=== PATIENT | female | born 1960 | race Caucasian/White ===

== ENCOUNTER 2019-03-06 14:48 | Emergency (ER) | payer OTHER ==
[~2019-03-06] VITALS: Ht 160 cm; Wt 42.6 kg
[2019-03-06] MEDS ORDERED: LISINOPRIL20 MG ORAL (14:53)
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
[2019-03-06 14:56] VITALS: BP 141/92
[2019-03-06] MEDS ORDERED: Isovue-300 100ml vial INJ PRN (15:00)
[2019-03-06] MEDS ORDERED: Morphine Sulfate 2mg/ml Inj(IV/IM USE ONLY) IVP ONE ×2 (15:00→16:45)
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
--- NOTE | 2019-03-06 15:13 | NUR ---
ED Nurse Note: XRAY AT BEDSIDE.
[2019-03-06 15:24] LABS: BASOPHILS % (AUTO) 1.6 % (0.0-2.0); EOSINOPHILS % (AUTO) 1.3 % (0.0-3.0); HEMATOCRIT 27.1 % (37.0-47.0); HEMOGLOBIN 8.2 G/DL (12.0-16.0); LYMPHOCYTES % (AUTO) 26.8 % (20.0-45.0); MEAN CORPUSCULAR VOLUME 74 FL (80-99); MONOCYTES % (AUTO) 6.6 % (1.0-10.0); NEUTROPHILS % (AUTO) 63.6 % (45.0-75.0); PLATELET COUNT 302 K/UL (150-450); RED BLOOD COUNT 3.69 M/UL (4.20-5.40); RED CELL DISTRIBUTION WIDTH 15.6 % (11.6-14.8); WHITE BLOOD COUNT 3.7 K/UL (4.8-10.8)
[2019-03-06 15:28] LABS: INR 1.1 (0.9-1.1)
[2019-03-06 15:33] LABS: ANION GAP 13 mmol/L (5-15); BLOOD UREA NITROGEN 10 mg/dL (7-18); CALCIUM 8.2 MG/DL (8.5-10.1); CARBON DIOXIDE 25 MMOL/L (21-32); CHLORIDE 109 MMOL/L (98-107); CREATININE 0.5 MG/DL (0.55-1.30); POTASSIUM 3.1 MMOL/L (3.5-5.1); SODIUM 147 MMOL/L (136-145)
[2019-03-06 15:37] LABS: ALANINE AMINOTRANSFERASE 21 U/L (12-78); ALBUMIN 2.5 G/DL (3.4-5.0); ALBUMIN/GLOBULIN RATIO 0.6 (1.0-2.7); ALKALINE PHOSPHATASE 146 U/L (46-116); ASPARTATE AMINO TRANSFERASE 48 U/L (15-37); BILIRUBIN,TOTAL 0.7 MG/DL (0.2-1.0)
--- NOTE | 2019-03-06 15:51 | NUR ---
ED Nurse Note: PT TO CT VIA RANDALL.
--- NOTE | 2019-03-06 16:06 | NUR ---
ED Nurse Note: PT BACK FROM CT VIA RANDALL.
--- NOTE | 2019-03-06 17:03 | NUR ---
ED Nurse Note: VERBAL ORDER FOR CLARKE CATHETER. 16F CLARKE CATHETER INSERTED USING STERILE TECHNIQUE. PT TOLERATED WELL.
[2019-03-06] MEDS ORDERED: Morphine Sulfate 4mg/ml Inj (IV USE ONLY) IVP ONE (18:30)
--- NOTE | 2019-03-06 18:50 | NUR ---
ED Nurse Note: KATELYN MAX
[2019-03-06 18:53] VITALS: BP 158/94
--- NOTE | 2019-03-06 18:55 | NUR ---
Face sheet, MD dictation and clinicals faxed to [phone] as requested.
--- NOTE | 2019-03-06 19:11 | NUR ---
ED Nurse Note: REPORT GIVEN TO UTE CELESTE.
--- NOTE | 2019-03-06 19:12 | NUR ---
ED Nurse Note: Received report from Eliseo/UTE. Pt is A/O X4. VSS, will continue to monitor.
--- NOTE | 2019-03-06 19:43 | NUR ---
Spoke with Nursing supervisor burling and joining [place] at [facility],still working on getting a bed, will call with destination in 15-20 min.
[2019-03-06 21:45] VITALS: BP 154/93
--- NOTE | 2019-03-06 21:45 | NUR ---
TRANSFER TO [facility].: Patient transferred to [facility] / room 704 as ordered . Report given to Senait/UTE . Belongings sent with Pt/EMS. Pt is A/O X4. VSS.
--- NOTE | 2019-03-06 21:55 | NUR ---
ED Nurse Note: Report gived to Bradley. Addendum: 03/07/19 at 0121 by [facility] ED Nurse Note: Pt has D/c'd from ED. Report gived to Bradley on the Phone.
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
--- NOTE | 2019-03-07 10:57 | Diagnostic Imaging Report ---
Indication: Pelvic pain, trauma Technique: One view of the pelvis Comparison: none Findings: There is a nondisplaced left hip intertrochanteric fracture, barely visible, better visualized on subsequent CT scan. There is a fracture of the left inferior pubic ramus. There is unusual appearance of the left superior pubic ramus, which is probably an artifact of rotation as subsequent CT scan does not show any fracture in this area. Impression: Positive for left inferior pubic ramus and left hip intertrochanteric fractures
== END 2019-03-06 21:45 | disposition short-term general hospital (02) ==
LOC: EDBD 14:48 → EMR 15:21
DX: S72.142A Displaced intertrochanteric fracture of left femur, initial encounter for closed fracture (principal); S32.592A Other specified fracture of left pubis, initial encounter for closed fracture; K86.3 Pseudocyst of pancreas; K74.60 Unspecified cirrhosis of liver; V03.90XA Pedestrian on foot injured in collision with car, pick-up truck or van, unspecified whether traffic or nontraffic accident, initial encounter; Y92.9 Unspecified place or not applicable; I10 Essential (primary) hypertension
CPT/HCPCS: 36415; 51702; 72170; 74177; 80053; 85025; 85610; 85730; 96374; 96376; 99284; J2270; Q9967; J8499